=== PATIENT | male | born 1975 | race Caucasian/White ===

== ENCOUNTER 2018-03-29 10:03 | Emergency (ER) | payer OTHER ==
[~2018-03-29] VITALS: Ht 200.7 cm; Wt 127.0 kg
[~2018-03-29 10:03] MED LIST: HYDROCODONE-AP1 EAC6 PO; NEXIUM40 MG; OMEPRAZOLE40 MG PO; PHENERGAN 25 MG25 M1 PO; ZOFRAN ODT4 MG PO; [UNRECOGNIZED DRUG - REMARK]
[2018-03-29 10:25] LABS: ABSOLUTE BASOPHILS 0.1 thou/uL (0.0-0.2); ABSOLUTE EOSINOPHILS 0.1 thou/uL (0.0-0.7); ABSOLUTE LYMPHOCYTES 2.4 thou/uL (0.8-5.3); ABSOLUTE MONOCYTES 0.9 thou/uL (0.0-1.2); ABSOLUTE NEUTROPHILS 8.2 thou/uL (1.6-8.1); BASOPHILS 0.5 %; HEMATOCRIT 45.7 % (42.0-52.0); HEMOGLOBIN 15.2 gm/dL (14.0-18.0); LYMPHOCYTES 20.8 %; MCH 29.8 pg (26.0-34.0); MCHC 33.2 g/dL (28.0-37.0); MCV 89.8 fL (80.0-100.0); MONOCYTES 7.4 %; MPV 7.9 fl. (7.2-11.1); NUCLEATED RBCS 0 /100WBC; PLATELET COUNT* 221 thou/uL (150-400); POLYS 70.3 %; RBC 5.09 mil/uL (4.50-6.00); RDW-CV 14.3 % (10.5-14.5); WBC 11.7 thou/uL (4.0-11.0)
[2018-03-29 10:40] LABS: CALCIUM 9.1 mg/dL (8.5-10.1); CREATININE 0.8 mg/dL (0.6-1.3); POTASSIUM 4.1 mmol/L (3.5-5.1)
[2018-03-29 10:44] LABS: ALBUMIN 3.7 g/dL (3.4-5.0); TOTAL BILIRUBIN 0.5 mg/dL (<0.1-1.0); TOTAL PROTEIN 7.7 g/dL (6.4-8.2)
[2018-03-29 11:05] LABS: URINE BILIRUBIN NEGATIVE (Negative); URINE BLOOD TRACE (Negative); URINE CLARITY CLEAR; URINE COLOR YELLOW; URINE GLUCOSE-RANDOM NEGATIVE (Negative); URINE KETONES NEGATIVE (Negative); URINE LEUKOCYTES-REFLEX NEGATIVE (Negative); URINE NITRITE-REFLEX NEGATIVE (Negative); URINE PROTEIN NEGATIVE (Negative); URINE SPECIFIC GRAVITY >= 1.030 (1.005-1.030); URINE UROBILINOGEN 0.2 E.U./dl (0.2-1.0)
[2018-03-29] MEDS ORDERED: CARAFATE 1 GM TA1 G1 PO (11:15)
[2018-03-29] MEDS ORDERED: OMEPRAZOLE20 M2 PO (11:15)
[2018-03-29 11:38] VITALS: BP 120/77
== END 2018-03-29 11:39 | disposition home or self-care (01) ==
LOC: M.ERS 10:03
PROVIDERS: Nurse Practitioner Family
DX: R10.13 Epigastric pain (principal); F17.210 Nicotine dependence, cigarettes, uncomplicated

== ENCOUNTER 2018-04-07 12:07 | Emergency (ER) | payer OTHER ==
[~2018-04-07] VITALS: Ht 200.7 cm; Wt 127.0 kg
--- NOTE | ~2018-04-07 | EKG ---
[place] [address] ELECTROCARDIOGRAM REPORT Name: WAYNE RODRIGUEZ Room: [facility]#: [id number] Admission: 04/07/18 Attend Phys: Discharge: 04/07/18 Date of : 79 Report #: [id number] THIS REPORT FOR: //name// [facility] ED Test Date: 2018-04-07 Test Time: 12:13:46 Pat Name: WAYNE RODRIGUEZ Department: Room: Gender: M Superintendent Drilling: CARLOS A : 1975 Requested By: Manisha Mcconnell Order Number: [id number] MD: Measurements Intervals [place] Rate: 68 P: -11 TN: 141 QRS: 62 QRSD: 137 T: 23 QT: 436 QTc: 464 Interpretive Statements Sinus rhythm Nonspecific intraventricular conduction delay Consider anterior infarct Artifact in lead(s) I,III,aVR,aVL,aVF,V3 and baseline wander in lead(s) V3,V5,V6 Compared to ECG 08/01/2015 09:12:39 Intraventricular conduction delay now present Myocardial infarct finding now present [email or web address] By: [address] [place], [place] /JANNA
[~2018-04-07 12:07] MED LIST changes: +CARAFATE 1 GM TA1 G1 PO; +OMEPRAZOLE20 M2 PO
[2018-04-07 12:53] LABS: ABSOLUTE BASOPHILS 0.1 thou/uL (0.0-0.2); ABSOLUTE EOSINOPHILS 0.2 thou/uL (0.0-0.7); ABSOLUTE LYMPHOCYTES 2.8 thou/uL (0.8-5.3); ABSOLUTE MONOCYTES 0.9 thou/uL (0.0-1.2); ABSOLUTE NEUTROPHILS 10.3 thou/uL (1.6-8.1); BASOPHILS 0.7 %; EOSINOPHILS 1.3 %; HEMATOCRIT 51.3 % (42.0-52.0); HEMOGLOBIN 17.1 gm/dL (14.0-18.0); LYMPHOCYTES 19.3 %; MCHC 33.4 g/dL (28.0-37.0); MCV 89.8 fL (80.0-100.0); MONOCYTES 6.3 %; MPV 8.2 fl. (7.2-11.1); NUCLEATED RBCS 0 /100WBC; PLATELET COUNT* 271 thou/uL (150-400); POLYS 72.4 %; RBC 5.72 mil/uL (4.50-6.00); RDW-CV 14.2 % (10.5-14.5); WBC 14.3 thou/uL (4.0-11.0)
[2018-04-07 12:59] LABS: ANION GAP 9 mmol/L (7-16); BUN 11 mg/dL (7-18); CALCIUM 9.4 mg/dL (8.5-10.1); CHLORIDE 104 mmol/L (98-107); CO2 28 mmol/L (21-32); CREATININE 0.8 mg/dL (0.6-1.3); GLUCOSE 86 mg/dL (70-99); POTASSIUM 3.7 mmol/L (3.5-5.1); SODIUM 141 mmol/L (136-145)
[2018-04-07 13:10] LABS: ALBUMIN 4.4 g/dL (3.4-5.0); ALKALINE PHOSPHATASE 76 U/L (46-116); SGOT 22 U/L (15-37); SGPT 37 U/L (30-65); TOTAL BILIRUBIN 1.2 mg/dL (<0.1-1.0); TOTAL PROTEIN 8.9 g/dL (6.4-8.2); TROPONIN-I LEVEL <0.06 ng/mL (<0.06)
[2018-04-07 14:25] LABS: URINE BILIRUBIN NEGATIVE (Negative); URINE BLOOD NEGATIVE (Negative); URINE CLARITY CLEAR; URINE COLOR YELLOW; URINE GLUCOSE-RANDOM NEGATIVE (Negative); URINE KETONES NEGATIVE (Negative); URINE LEUKOCYTES-REFLEX NEGATIVE (Negative); URINE NITRITE-REFLEX NEGATIVE (Negative); URINE PROTEIN NEGATIVE (Negative); URINE UROBILINOGEN 0.2 E.U./dl (0.2-1.0)
[2018-04-07 14:32] LABS: AMP/METHAMP Negative (Negative); BARBITURATES Negative (Negative); BENZODIAZEPINES Negative (Negative); COCAINE Negative (Negative); METHADONE Negative (Negative); OPIATES Negative (Negative); PCP Negative (Negative); THC Negative (Negative)
[2018-04-07 16:17] VITALS: BP 105/61
== END 2018-04-07 16:18 | disposition home or self-care (01) ==
LOC: M.ERS 12:07
PROVIDERS: Personal Emergency Response Attendant
DX: R07.89 Other chest pain (principal); F41.9 Anxiety disorder, unspecified; F17.210 Nicotine dependence, cigarettes, uncomplicated; Z90.49 Acquired absence of other specified parts of digestive tract; Z79.899 Other long term (current) drug therapy

== ENCOUNTER 2018-04-08 10:14 | Observation (INO) | payer OTHER ==
[~2018-04-08] VITALS: Ht 200.7 cm; Wt 127.0 kg
[2018-04-08 10:17] VITALS: BP 122/69
[2018-04-08 10:37] LABS: ABSOLUTE BASOPHILS 0.1 thou/uL (0.0-0.2); ABSOLUTE EOSINOPHILS 0.2 thou/uL (0.0-0.7); ABSOLUTE LYMPHOCYTES 2.1 thou/uL (0.8-5.3); ABSOLUTE MONOCYTES 0.7 thou/uL (0.0-1.2); ABSOLUTE NEUTROPHILS 8.3 thou/uL (1.6-8.1); BASOPHILS 0.5 %; EOSINOPHILS 1.6 %; HEMATOCRIT 49.2 % (42.0-52.0); HEMOGLOBIN 16.4 gm/dL (14.0-18.0); LYMPHOCYTES 18.4 %; MCH 29.9 pg (26.0-34.0); MCHC 33.3 g/dL (28.0-37.0); MCV 89.9 fL (80.0-100.0); MONOCYTES 6.6 %; MPV 7.8 fl. (7.2-11.1); NUCLEATED RBCS 0 /100WBC; PLATELET COUNT* 229 thou/uL (150-400); POLYS 72.9 %; RBC 5.47 mil/uL (4.50-6.00); RDW-CV 13.9 % (10.5-14.5); WBC 11.3 thou/uL (4.0-11.0)
[2018-04-08 10:48] LABS: ANION GAP 10 mmol/L (7-16); BUN 10 mg/dL (7-18); CALCIUM 8.9 mg/dL (8.5-10.1); CHLORIDE 103 mmol/L (98-107); CO2 26 mmol/L (21-32); CREATININE 0.9 mg/dL (0.6-1.3); GLUCOSE 103 mg/dL (70-99); POTASSIUM 3.9 mmol/L (3.5-5.1); SODIUM 139 mmol/L (136-145)
[2018-04-08 10:53] LABS: APTT 28.7 Seconds (25.0-31.3); PROTIME 10.4 Seconds (9.20-11.50)
[2018-04-08 10:55] LABS: ALBUMIN 3.9 g/dL (3.4-5.0); ALKALINE PHOSPHATASE 72 U/L (46-116); LIPASE 73 U/L (73-393); SGOT 18 U/L (15-37); SGPT 31 U/L (30-65); TOTAL BILIRUBIN 1.2 mg/dL (<0.1-1.0); TROPONIN-I LEVEL <0.06 ng/mL (<0.06)
[2018-04-08 16:12] VITALS: BP 103/59
--- NOTE | 2018-04-08 17:01 | EKG ---
[place] [address] ELECTROCARDIOGRAM REPORT Name: WAYNE RODRIGUEZ Room: [address] ADM IN [facility].#: [id number] Admission: 04/08/18 Attend Phys: Ora Christensen Discharge: Date of : 79 Report #: [id number] THIS REPORT FOR: //name// [facility] ED Test Date: 2018-04-07 Test Time: 13:08:11 Pat Name: WAYNE RODRIGUEZ Department: Room: [facility] Gender: M General Claims Agent: : 1975 Requested By: Manisha Mcconnell Order Number: [id number] Maria Luz MD: Gurpreet Kaiser Measurements Intervals [place] Rate: 66 P: -13 [place]: 163 QRS: 27 QRSD: 108 T: 29 QT: 389 QTc: 408 Interpretive Statements Sinus rhythm RSR' in V1 or V2, right VCD or RVH ST elevation, consider early repolarization Compared to ECG 08/01/2015 09:12:39 Right ventricular hypertrophy now present RSR' in V1 or V2 now present ST (T wave) deviation now present Electronically Signed On 04-08-2018 17:01:24 CDT by Gurpreet Kaiser [email or web address] <ELECTRONICALLY SIGNED> By: Gurpreet Kaiser MD, FACC 04/08/18 1701 1308 1308 Gurpreet Kaiser MD, FACC /EPI
--- NOTE | 2018-04-08 17:46 | NUR ---
PT ADMITTED FROM ER. SR/1ST DEGREE ON MONITOR. HISTORY AND ASSESSMENT COMPLETE. PT TO BE NPO AFTER MIDNIGHT FOR STRESS TEST IN AM. PT ORIENTED TO ROOM , CALL LIGHT, AND BED CONTROLS. PT VERBALIZED UNDERSTANDING. REPORTS CHEST PAIN LEVEL AT A 4. DENIED NEED FOR PAIN MEDICATION. UP AD MIKALA WITH STEADY GAIT.
--- NOTE | 2018-04-08 19:30 | NUR ---
ASSUMED CARE OF PT. RESTING IN BED TALKING ON PHONE. C/O SUBSTERNAL CP AT 410. PT STATES HE DOES NOT WANT ANY MEDICATION FOR THE PAIN. PT DID STATE THAT HE FELT PRETTY ANXIOUS AND WAS NOT SURE IF THAT WAS CONTRIBUTING TO THE PAIN AND ASKED FOR AN ANXIETY PILL WHICH WAS GIVEN WITH GOOD RESULT. VSS. PT ABLE TO TOLERATE FOOD AND DRINK WITH OUT DIFFICULTY. AWAITING STRESS TEST IN AM. WILL CONT TO MONITOR.
[2018-04-08 19:40] VITALS: BP 112/65
[2018-04-09] VITALS: BP 98/48
[2018-04-09 04:00] VITALS: BP 102/61
[2018-04-09 08:24] VITALS: BP 102/50
--- NOTE | 2018-04-09 10:36 | NUR ---
ASSUMED CARE OF PT THIS AM AROUND 0715- UNIT NURSE IN PLACE ORDERED, TRACING SR- UPON ASSESSMENT PT NOTED TO BE RESTING IN BED, EYES CLOSED- PT A&O X4- CONTINENT OF BOWEL AND BLADDER- UP AD-MIKALA IN ROOM, STEADY GAIT NOTED- LCTA, RESP EVEN AND UN-LABORED- VSS, O2 SAT 95% ON RA- ABDOMEN SOFT/ROUND/NON-TENDER, BS X 4 QUADS- LAST BM REPORTED X2 DAYS AGO- IV NOTED TO LEFT AC INTACT AND SL- PT AMELIA NPO FOR PLANNED STRESS TEST THIS SHIFT- D/C PENDING STRESS RESULTS- PT RATES PAIN/PRESSURE /10 TO CHEST THIS AM- REQUEST FOR LORAZEPAM PER PT THIS AM AND GIVEN AT 0932- CALL LIGHT AND PERSONAL BELONGINGS WITH IN REACH- HOURLY ROUNDS IN PLACE R/T SAFETY/NEEDS- ALL NEEDS MET AT THIS TIME-WCTM
[2018-04-09] MEDS ORDERED: ANTIVERT25 MG PO (11:17)
[2018-04-09] MEDS ORDERED: ATIVAN0.5 MG PO (11:17)
[2018-04-09 11:35] VITALS: BP 108/53
[2018-04-09 12:01] VITALS: BP 108/53
[2018-04-09] MEDS ORDERED: TYLENOL EXTRA500 MG PO (12:06)
[2018-04-09] MEDS ORDERED: IBUPROFEN 800800 M1 PO (12:07)
[2018-04-09] MEDS ORDERED: NICOTINE TRANSD21 M1 TRANSDERM (12:08)
--- NOTE | 2018-04-09 12:53 | EKG ---
[place] [address] ELECTROCARDIOGRAM REPORT Name: WAYNE RODRIGUEZ Room: [address] ADM IN [facility]#: [id number] Admission: 04/08/18 Attend Phys: Ora Christensen Discharge: Date of : 79 Report #: [id number] THIS REPORT FOR: //name// [facility] ED Test Date: 2018-04-08 Test Time: 10:21:34 Pat Name: WAYNE RODRIGUEZ Department: Room: [facility] Gender: M Cork Mixer: CARLOS A : 1975 Requested By: Manisha Mcconnell Order Number: [id number] MD: Wayne Agee Measurements Intervals [place] Rate: 70 P: -1 [place]: 162 QRS: 31 QRSD: 105 T: 25 QT: 382 QTc: 413 Interpretive Statements Sinus rhythm RSR' in V1 or V2, right VCD or RVH ST elev, probable normal early repol pattern Compared to ECG 04/07/2018 13:08:11 No significant changes Electronically Signed On 04-09-2018 12:53:00 CDT by Wayne Agee [email or web address] <ELECTRONICALLY SIGNED> By: Wayne Agee MD, [facility] 04/09/18 1253 1021 1021 Wayne Agee MD, [facility] /EPI
--- NOTE | 2018-04-09 14:14 | NUR ---
Pt is A&O. Resides at home with sig other and kids. Independent with ADLs, continues to work outside of the home. No DME. No hx of HH or SNF. Scheduled to have a stress test today. Following for disposition.
--- NOTE | 2018-04-09 16:06 | 2DMMODE ---
[place] [address] 2 D/M-MODE ECHOCARDIOGRAM Name: WAYNE RODRIGUEZ Room: [address] Momo Suarez#: [id number] Admission: 04/08/18 Attend Phys: James Anderson Discharge: Date of : 79 Date of Service: 04/09/18 1606 Report #: [id number] THIS REPORT FOR: //name// APPROVED REPORT Study performed: 04/09/2018 11:18:07 EXAM: Comprehensive 2D, Doppler, and color-flow Echocardiogram Patient Location: In-Patient Room #: [facility] Status: routine BSA: 2.63 HR: 68 bpm BP: 102/50 mmHg Rhythm: NSR Other Information Study Quality: Good Indications Chest Pain 2D Dimensions IVSd: 12.77 (7-11mm) LVOT Diam: 22.28 (18-24mm) LVDd: 48.95 mm PWd: 10.07 (7-11mm) Ascending Ao: 27.23 (22-36mm) LVDs: 31.31 (25-40mm) Aortic Root: 29.73 mm Volumes Left Atrial Volume (Systole) LA ESV Index: 13.60 mL/m2 Aortic Valve AoV Peak Rodo.: 1.22 m/s AO Peak Gr.: 5.98 mmHg LVOT Max P.36 mmHg AO Mean Gr.: 3.39 mmHg LVOT Mean P.61 mmHg LVOT Max V: 1.26 m/s AO V2 VTI: 24.47 cm LVOT Mean V: 0.72 m/s HALIE (VTI): 3.87 cm2 LVOT V1 VTI: 24.28 cm Mitral Valve E/A Ratio: 1.39 MV Decel. Time: 250.70 ms MV E Max Rodo.: 0.79 m/[place] [address] 2 D/M-MODE ECHOCARDIOGRAM Name: WAYNE RODRIGUEZ Room: [address] M.R.#: [id number] Admission: 04/08/18 Attend Phys: James Anderson Discharge: Date of : 79 Date of Service: 04/09/18 1606 Report #: [id number] MV PHT: 72.70 ms MVA (PHT): 3.03 cm2 TDI E/Lateral E': 7.18 E/Medial E': 7.18 Medial E' Rodo.: 0.11 m/s Lateral E' Rodo.: 0.11 m/s Pulmonary Valve PV Peak Rodo.: 1.00 m/s PV Peak Gr.: 3.97 mmHg Left Ventricle The left ventricle is normal size. There is normal LV segmental wall motion. There is normal left ventricular wall thickness. Left ventricular systolic function is normal. The left ventricular ejection fraction is within the normal range. LVEF is 60-65%. The left ventricular diastolic function is normal. Right Ventricle The right ventricle is normal size. The right ventricular systolic function is normal. Atria The left atrium size is normal. The right atrium size is normal. Aortic Valve The aortic valve is normal in structure. No aortic regurgitation is present. There is no aortic valvular stenosis. Mitral Valve The mitral valve is normal in structure. There is no mitral valve regurgitation noted. No evidence of mitral valve stenosis. Tricuspid Valve The tricuspid valve is normal in structure. Unable to assess PA pressure. Trace tricuspid regurgitation. Pulmonic Valve The pulmonary valve is normal in structure. Trace pulmonic regurgitation. Great Vessels The aortic root is normal in size. IVC is normal in size and collapses with >50% [place] [address] 2 D/M-MODE ECHOCARDIOGRAM Name: WAYNE RODRIGUEZ Room: [address]#: [id number] Admission: 04/08/18 Attend Phys: James Anderson Discharge: Date of : 79 Date of Service: 04/09/18 1606 Report #: [id number] Pericardium There is no pericardial effusion. <Conclusion> Left ventricular systolic function is normal. The left ventricular ejection fraction is within the normal range. <ELECTRONICALLY SIGNED> By: Wayne Agee MD, [facility] 04/09/18 1606 160 160 Wayne Agee MD, FAC /INF
[2018-04-09 16:11] VITALS: BP 119/66
--- NOTE | 2018-04-09 17:07 | CARDNUC ---
[place] [address] CARDIAC NUCLEAR IMAGING REPORT Name: WAYNE RODRIGUEZ [address] [id number] Admission: 04/08/18 Attend Phys: James Anderson Discharge: Date of : 79 Date of Service: 04/09/18 1707 Report #: [id number] THIS REPORT FOR: //name// APPROVED REPORT Imaging Protocol: Rest Tc-99m/Stress Tc-99m 1 day Study performed: 04/08/2018 16:12:00 Indication: Chest pain, Dyspnea BMI: 0 Medical History Medical History: Current Smoker Medications: No cardiac medications Cardiac Risk Factors: Current Smoker Resting Data Rest SPECT myocardial perfusion imaging was performed in supine position 45 minutes following the intravenous injection of 11.2 mCi of Tc-99m Sestamibi. Time of rest injection: 1200 Date: 04/09/2018 The images were gated to evaluate regional wall motion and calculate left ventricular ejection fraction. Administration Route: IV Administration Site: Right AC Exercise Stress At peak stress, the patient was injected intravenously with 30mCi of Tc-99m Sestamibi. Time of stress injection: 1345 Date: 04/09/2018 Gated Stress SPECT was performed 45 minutes after stress injection. The images were gated to evaluate regional wall motion and calculate left ventricular ejection fraction. Prone imaging was performed. Stress Test Details Stress Test: Pharmacologic stress testing performed using 0.4 mg of regadenoson per 5 mL given IV over 10 seconds. HR Max Heart Rate (APMHR): 180 bpm Resting HR: 77 bpm Target HR (85% APMHR): 153 bpm Max HR Achieved: 169 [place] [address] CARDIAC NUCLEAR IMAGING REPORT Name: WAYNE RODRIGUEZ Room: [address]#: [id number] Admission: 04/08/18 Attend Phys: James Anderson Discharge: Date of : 79 Date of Service: 04/09/18 1707 Report #: [id number] % of APMHR: 93 HR response to stress: Normal HR response to stress BP Resting BP: 101/51 mmHg Recovery BP: 120/65 mmHg BP response to stress: Normal blood pressure response to stress. ECG Resting ECG: Sinus Rhythm Stress ECG: Sinus Rhythm ST Change: None Recovery ECG: Sinus Rhythm Recovery ST Change: None Clinical Stress Symptoms: None Stress ECG Conclusion negative ecg Study Quality Study: Fair Artifact: Mild Soft tissue attenuation artifact Lung Uptake: Normal Study Data At rest, the left ventricular ejection fraction was 74%.. Post stress, the left ventricular ejection was 75%.. SSS: 4 SRS: 11 SDS: -4 TID = 0.89. Perfusion Review of SPECT images reveals a patchy, inhomongenous uptake of tracer in all segments, but no defined reversible defects. Prone images show some improvement. Images were reviewed using UniQureis. Wall Motion normal all segments Nuclear Conclusion ECG Findings: [place] [address] CARDIAC NUCLEAR IMAGING REPORT Name: WAYNE RODRIGUEZ [address] [id number] Admission: 04/08/18 Attend Phys: James Anderson Discharge: Date of : 79 Date of Service: 04/09/181706 Report #: [id number] Clinical Findings: negative for ischemia Nuclear Findings: negative for ischemia Exercise Capacity: normal Left Ventricular Function: normal Risk Study: low Negative exercise perfusion nuclear stress test for ischemi/infarct. Normal LV systolic function. <Conclusion> negative ecg <ELECTRONICALLY SIGNED> By: Marko Gomez MD, FACC 04/09/181706 06 06 Marko Gomez MD, FACC /INF
--- NOTE | 2018-04-09 17:24 | NUR ---
STRESS TEST COMPLETED THIS SHIFT ORDERED, AND REPORTED TO BE NEGATIVE- D/C NOTED TO BE OKAY PER AND CARDIOLOGY IF STRESS TEST NEGATIVE- IV TO LEFT AC D/C'D ALONG WITH OFFICE SECRETARY PRIOR TO D/C- D/C TEACHING/EDUCATION GIVEN TO PT WITH ALL QUESTIONS AND CONCERNS ADDRESSED- WRITTEN EDUCATION ALONG WITH SCRIPTS PROVIDED TO PT AT TIME OF D/C- BELONGINGS PACKED AND ACCOUNTED FOR PER PT- PT ESCORTED PER TECH VIA AMBULATION WITH BELONGINGS TO VEHICLE AT 1730- NO PROBLEMS TO NOTE AT TIME OF D/C
--- NOTE | 2018-04-13 08:12 | CON ---
[address] [address] CONSULTATION Name: WAYNE RODRIGUEZ Room: [address] Momo Suarez#: [id number] Admission: 04/08/18 Attend Phys: Ora Christensen Discharge: 04/09/18 Date of : 79 Report #: [id number] THIS REPORT FOR: //name// CC: NICOLE physician/PCP James Anderson HISTORY OF PRESENT ILLNESS: The patient is a 42-year-old white male who I was asked to see in the hospital after he complained of chest pain. The patient has no previous history of heart disease. He has had no previous cardiac evaluation. He is not very active at this time. He was doing well until about a week ago, began to complain of intermittent chest pain. It is not related to exertion or meals. It occurs in his chest. It can make him nauseated and he has actually vomited. He apparently came to the emergency room at a week ago and was sent home with antacids. However, he came back to the hospital 2 days ago and was evaluated and sent home. He again had chest pain yesterday, came back to the hospital, so he was admitted. He denied the pain being related to food or meals. He described a burning in his chest, goes up into his throat. Yesterday, he felt short of breath, lightheaded, nauseated, actually vomited. He had to sit down at that time. He denied any blood in his vomit. He has had no recent trauma to his chest. He has had no fever or cough. Denies any exertional dyspnea. He has noted some palpitations or syncope. He has had no leg pain or edema. PAST MEDICAL HISTORY: Significant for cholecystectomy. He has no history of hypertension, diabetes, hyperlipidemia. MEDICATIONS: He is on no medications. ALLERGIES: He has no known drug allergies. FAMILY HISTORY: His grandfather had a heart disease. 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 He is and lives here in [place] with his and 3 kids. He smokes 1 pack of cigarettes a day. No history of alcohol abuse. REVIEW OF SYSTEMS: He has had no history of stroke, asthma, peptic ulcer disease, liver disease, kidney disease or cancer. He has history of anxiety disorder and sees a counselor. No chronic skin condition. PHYSICAL EXAMINATION: GENERAL: Revealed a middle-aged male lying in bed. He appeared in no acute distress. VITAL SIGNS: He had a blood pressure of 110/60, pulse 70. He is afebrile. HEENT: He is anicteric. Conjunctivae are pink. Mucous membranes are moist. NECK: Veins were not distended. No carotid bruits. Neck was supple. CHEST: [place] [address] CONSULTATION Name: JENNIFERWAYNE Emmanuel Room: [address] Erick#: [id number] Admission: 04/08/18 Attend Phys: Ora Christensen Discharge: 04/09/18 Date of : 79 Report #: [id number] CARDIAC: Regular rate and rhythm without murmur or rub. ABDOMEN: Soft. EXTREMITIES: Had no edema. Posterior tibial pulse 2+ bilaterally. SKIN: Warm and dry. NEUROLOGIC: Nonfocal. LYMPH: No adenopathy. MUSCULOSKELETAL: No joint effusion. DATA: His ECG showed a normal sinus rhythm, incomplete right-bundle branch block, no ST or T-wave change. His workup in emergency room included a chest x-ray that showed decreased inspiration, mild atelectasis. No effusions. He had an abdominal ultrasound done yesterday that showed evidence of previous cholecystectomy. No other abnormalities. He had lab work done, sodium 139, creatinine 0.9, glucose 103. Liver function studies were normal. Troponins have all been 0.06. TSH 0.3. White blood cell count 11.3, hemoglobin 16.4. Urinalysis negative for protein or blood and negative for leukocytes. IMPRESSION AND RECOMMENDATIONS: 1. Chest pain. Atypical for angina. Minimal risk factors for coronary artery disease. Recommend stress testing. 2. Tobacco abuse. 3. History of anxiety disorder. <ELECTRONICALLY SIGNED> By: Wayne Agee MD, FACC 04/13/18 0812 0746 0823Daviora Agee MD, FACC /nt
== END 2018-04-09 17:40 | disposition home or self-care (01) ==
LOC: M.ERS 10:14 → M.2W 15:12 → M.TBA-ER 15:12 → M.2W 15:12
PROVIDERS: Personal Emergency Response Attendant; ADMIT Internal Medicine
DX: R07.89 Other chest pain (principal); K27.9 Peptic ulcer, site unspecified, unspecified as acute or chronic, without hemorrhage or perforation; F41.9 Anxiety disorder, unspecified; F17.210 Nicotine dependence, cigarettes, uncomplicated; Z82.49 Family history of ischemic heart disease and other diseases of the circulatory system

== ENCOUNTER 2020-12-20 02:54 | Emergency (ER) | payer OTHER ==
[~2020-12-20] VITALS: Ht 200.7 cm; Wt 138.3 kg
[~2020-12-20 02:54] MED LIST changes: +ANTIVERT25 MG PO; +ATIVAN0.5 MG PO; +IBUPROFEN 800800 M1 PO; +NICOTINE TRANSD21 M1 TRANSDERM; +TYLENOL EXTRA500 MG PO
[2020-12-20] MEDS ORDERED: AMOXICILLIN875 MG PO ×2 (03:45→03:46)
[2020-12-20] MEDS ORDERED: CIPRO HC OTIC S10 ML OTIC ×2 (03:45→03:46)
[2020-12-20] MEDS ORDERED: HYDROCODON-ACE1 EAC7 PO ×2 (03:45→03:46)
[2020-12-20 03:59] VITALS: BP 135/80
== END 2020-12-20 03:58 | disposition home or self-care (01) ==
LOC: M.ERS 02:54
DX: H60.91 Unspecified otitis externa, right ear (principal); H66.91 Otitis media, unspecified, right ear; F17.210 Nicotine dependence, cigarettes, uncomplicated; Z90.49 Acquired absence of other specified parts of digestive tract

== ENCOUNTER 2021-02-09 11:28 | Emergency (ER) | payer OTHER ==
[~2021-02-09] VITALS: Ht 200.7 cm; Wt 136.1 kg
[~2021-02-09 11:28] MED LIST changes: +AMOXICILLIN875 MG PO; +CIPRO HC OTIC S10 ML OTIC; +HYDROCODON-ACE1 EAC7 PO
[2021-02-09] MEDS ORDERED: BUSPAR30 MG PO (11:39)
[2021-02-09 13:15] LABS: URINE BLOOD NEGATIVE (Negative); URINE CLARITY CLEAR; URINE COLOR YELLOW; URINE GLUCOSE-RANDOM NEGATIVE (Negative); URINE KETONES NEGATIVE (Negative); URINE LEUKOCYTES-REFLEX NEGATIVE (Negative); URINE NITRITE-REFLEX NEGATIVE (Negative); URINE PROTEIN NEGATIVE (Negative)
[2021-02-09 13:17] LABS: URINE BILIRUBIN 1+ (Negative)
[2021-02-09 13:20] LABS: ICTOTEST (BILI CONFIRMATORY) Negative (Negative)
[2021-02-09 13:31] LABS: AMP/METHAMP Negative (Negative); BARBITURATES Negative (Negative); BENZODIAZEPINES Negative (Negative); COCAINE Negative (Negative); METHADONE Negative (Negative); OPIATES Negative (Negative); PCP Negative (Negative); THC Negative (Negative)
[2021-02-09 13:40] LABS: CREATININE 0.8 mg/dL (0.6-1.3); POTASSIUM 4.3 mmol/L (3.5-5.1)
[2021-02-09 13:44] LABS: ABSOLUTE BASOPHILS 0.1 thou/uL (0.0-0.2); ABSOLUTE EOSINOPHILS 0.1 thou/uL (0.0-0.7); ABSOLUTE LYMPHOCYTES 2.6 thou/uL (0.8-5.3); ABSOLUTE MONOCYTES 0.9 thou/uL (0.0-1.2); ABSOLUTE NEUTROPHILS 8.4 thou/uL (1.6-8.1); BASOPHILS 0.6 %; EOSINOPHILS 1.1 %; HEMATOCRIT 43.8 % (42.0-52.0); LYMPHOCYTES 21.6 %; MCH 30.4 pg (26.0-34.0); MCHC 34.2 g/dL (28.0-37.0); MCV 88.8 fL (80.0-100.0); MONOCYTES 7.4 %; MPV 8.1 fl. (7.2-11.1); NUCLEATED RBCS 0 /100WBC; PLATELET COUNT* 225 thou/uL (150-400); POLYS 69.3 %; RBC 4.93 mil/uL (4.50-6.00); RDW-CV 14.7 % (10.5-14.5); WBC 12.1 thou/uL (4.0-11.0)
[2021-02-09 13:45] LABS: ALBUMIN 3.7 g/dL (3.4-5.0); TOTAL BILIRUBIN 0.9 mg/dL (<0.1-1.0); TOTAL PROTEIN 7.6 g/dL (6.4-8.2)
[2021-02-09 13:51] LABS: ACETAMINOPHEN < 2 ug/mL (10-30); ALCOHOL < 10 mg/dL (<10); SALICYLATE 3.7 mg/dL (2.8-20.0)
--- NOTE | 2021-02-09 15:40 | EKG ---
[place] [address] ELECTROCARDIOGRAM REPORT Name: WAYNE RODRIGUEZ Room: [facility]#: [id number] Admission: 02/09/21 Attend Phys: Discharge: Date of : 79 Date of Service: 02/09/21 1133 Report #: [id number] THIS REPORT FOR: //name// [facility] ED Test Date: 2021-02-09 Test Time: 11:33:51 Pat Name: WAYNE RODRIGUEZ Department: Room: Gender: Production Team Manager: [place] : 1975 Requested By: Murphy Hu Order Number: [id number] MD: Gurpreet Kaiser Measurements Intervals [place] Rate: 83 P: 20 [place]: 160 QRS: 43 QRSD: 105 T: 24 QT: 350 QTc: 412 Interpretive Statements Sinus rhythm RSR' in V1 or V2, right VCD or RVH Compared to ECG 04/08/2018 10:21:34 ST (T wave) deviation no longer present Electronically Signed On 02-09-2021 15:40:39 CDT by Gurpreet Kaiser [email or web address] <ELECTRONICALLY SIGNED> By: Gurpreet Kaiser MD, FACC 02/09/21 1540 1133 1133 Gurpreet Kaiser MD, [facility] /EPI
[2021-02-09 16:32] VITALS: BP 127/85
== END 2021-02-09 16:34 | disposition home or self-care (01) ==
LOC: M.ERS 11:28
PROVIDERS: Emergency Medicine Emergency Medical Services
DX: F41.9 Anxiety disorder, unspecified (principal); Z20.822 Contact with and (suspected) exposure to COVID-19; F32.9 Major depressive disorder, single episode, unspecified; R07.89 Other chest pain; F17.210 Nicotine dependence, cigarettes, uncomplicated; Z90.49 Acquired absence of other specified parts of digestive tract; Z79.899 Other long term (current) drug therapy